=== PATIENT | female | born 1985 | race Two or more races ===

== ENCOUNTER 2024-04-18 13:21 | Emergency (ER) | payer MEDICAID ==
[~2024-04-18] VITALS: Ht 149.9 cm; Wt 70.8 kg
[2024-04-18 13:30] VITALS: BP 156/103; TEMP 98.3
[2024-04-18] MEDS ORDERED: BENZONATATE 100 MG CAPSULE PO ONE (13:55)
[2024-04-18] MEDS: BENZONATATE 100 MG CAPSULE PO PRN (14:04)
[2024-04-18 15:48] LABS: BASOPHILS % (AUTO) 0.4 % (0.0-2.0); EOSINOPHILS # (AUTO) 0.7 K/uL (0.0-0.7); EOSINOPHILS % (AUTO) 5.9 % (0.0-6.0); HEMATOCRIT 34 % (33-45); HEMOGLOBIN 11.2 g/dL (11.5-14.8); LYMPHOCYTES # (AUTO) 2.2 K/uL (0.8-4.8); LYMPHOCYTES % (AUTO) 19.4 % (20.0-44.0); MEAN CORPUSCULAR HEMOGLOBIN 30 PG (26.0-33.0); MEAN CORPUSCULAR HGB CONC 33 g/dl (31.0-36.0); MEAN CORPUSCULAR VOLUME 90 fL (82-100); MONOCYTES # (AUTO) 0.7 K/uL (0.1-1.30); MONOCYTES % (AUTO) 6.6 % (2.0-12.0); NEUTROPHILS # (AUTO) 7.6 K/uL (1.8-8.9); NEUTROPHILS % (AUTO) 67.7 % (43.0-81.0); PLATELET COUNT (AUTO) 234 K/uL (150-450); RED BLOOD CELL COUNT(AUTO) 3.75 MIL/uL (4.0-5.2); RED CELL DISTRIBUTION WIDTH 14.6 % (11.5-15.0); WHITE BLOOD COUNT (AUTO) 11.3 K/uL (4.3-11.0)
[2024-04-18 15:56] LABS: CALCIUM, SERUM 8.5 mg/dL (8.5-10.1); CREATININE 0.8 mg/dL (0.6-1.3); POTASSIUM 2.9 mmol/L (3.5-5.1)
[2024-04-18 16:01] LABS: BILIRUBIN,TOTAL 0.7 mg/dL (0.2-1.0); TOTAL PROTEIN, SERUM 7.4 g/dL (6.4-8.2)
[2024-04-18 16:09] LABS: ALBUMIN 3.4 g/dL (3.4-5.0)
[2024-04-18 17:21] LABS: APPEARANCE,URINE Slightly Cloudy (CLEAR); BILIRUBIN,URINE Negative (NEGATIVE); BLOOD, URINE Small Ery/uL (NEGATIVE); COLOR,URINE LIGHT YELLOW (YELLOW); KETONES,URINE Negative (NEGATIVE); LEUKOCYTE ESTERASE ,URINE Small (NEGATIVE); NITRITE, URINE Positive (NEGATIVE); PH,URINE 5.5 (5.0-8.0); PROTEIN,URINE 100 mg/dl (NEGATIVE); UGLUCOSE Negative (NEGATIVE); UROBILINOGEN,URINE 0.2 EU/dL (0.2)
[2024-04-18] MEDS ORDERED: CEFD300C3 PO (17:30)
[2024-04-18] MEDS ORDERED: ALBU18HF2 INH (17:42)
[2024-04-18 17:51] VITALS: O2SAT 98
[2024-04-18 18:04] LABS: ADD URINE CULTURE YES; BACTERIA,URINE Many /HPF (None Seen); SQUAMOUS EPITHELIAL CELL,UR Moderate /HPF (None Seen); WBC,URINE 21-50 /HPF (0-3)
== END 2024-04-18 17:51 | disposition home or self-care (01) ==
LOC: ER 13:21
DX: N13.2 Hydronephrosis with renal and ureteral calculous obstruction (principal); N39.0 Urinary tract infection, site not specified; R05.9 Cough, unspecified; R07.9 Chest pain, unspecified; R03.0 Elevated blood-pressure reading, without diagnosis of hypertension; R94.31 Abnormal electrocardiogram [ECG] [EKG]
CPT/HCPCS: 36415; 71045-TC; 76770-TC; 80053-TC; 81001; 83690-TC; 85025-TC; 87086-TC

== ENCOUNTER 2024-05-02 08:07 | Emergency (ER) | payer MEDICAID ==
[~2024-05-02] VITALS: Ht 157.5 cm; Wt 73.5 kg
[~2024-05-02 08:07] MED LIST: ALBU18HF2 INH; CEFD300C3 PO
[2024-05-02] MEDS ORDERED: KETOROLAC TROMETHAMINE 15 MG/ML VIAL ONE (08:44)
[2024-05-02] MEDS ORDERED: ONDANSETRON HCL/PF 4 MG/2 ML VIAL ONE (08:44)
[2024-05-02 08:50] LABS: BASOPHILS % (AUTO) 0.2 % (0.0-2.0); EOSINOPHILS # (AUTO) 0.2 K/uL (0.0-0.7); EOSINOPHILS % (AUTO) 2.4 % (0.0-6.0); HEMATOCRIT 35 % (33-45); HEMOGLOBIN 11.5 g/dL (11.5-14.8); LYMPHOCYTES # (AUTO) 1.5 K/uL (0.8-4.8); LYMPHOCYTES % (AUTO) 14.5 % (20.0-44.0); MEAN CORPUSCULAR HEMOGLOBIN 30 PG (26.0-33.0); MEAN CORPUSCULAR HGB CONC 34 g/dl (31.0-36.0); MEAN CORPUSCULAR VOLUME 89 fL (82-100); MONOCYTES # (AUTO) 0.5 K/uL (0.1-1.30); MONOCYTES % (AUTO) 4.8 % (2.0-12.0); NEUTROPHILS # (AUTO) 7.9 K/uL (1.8-8.9); NEUTROPHILS % (AUTO) 78.1 % (43.0-81.0); PLATELET COUNT (AUTO) 305 K/uL (150-450); RED BLOOD CELL COUNT(AUTO) 3.87 MIL/uL (4.0-5.2); RED CELL DISTRIBUTION WIDTH 15.5 % (11.5-15.0); WHITE BLOOD COUNT (AUTO) 10.1 K/uL (4.3-11.0)
[2024-05-02 09:01] LABS: CALCIUM, SERUM 9.2 mg/dL (8.5-10.1); CREATININE 0.8 mg/dL (0.6-1.3); POTASSIUM 3.3 mmol/L (3.5-5.1)
[2024-05-02 09:08] LABS: ALBUMIN 3.3 g/dL (3.4-5.0); BILIRUBIN,DIRECT 0.1 mg/dL (0.0-0.2); BILIRUBIN,TOTAL 0.4 mg/dL (0.2-1.0); TOTAL PROTEIN, SERUM 7.8 g/dL (6.4-8.2)
[2024-05-02] MEDS: IV NS 0.9% 1,000 ML BAG IV ONE (09:10)
[2024-05-02] MEDS: KETOROLAC TROMETHAMINE 15 MG/ML VIAL IV ONE (09:10)
[2024-05-02] MEDS: ONDANSETRON HCL/PF 4 MG/2 ML VIAL IV ONE (09:11)
[2024-05-02 10:14] LABS: APPEARANCE,URINE CLEAR (CLEAR); BILIRUBIN,URINE NEGATIVE (NEGATIVE); BLOOD, URINE 1+ Ery/uL (NEGATIVE); COLOR,URINE YELLOW (YELLOW); KETONES,URINE NEGATIVE (NEGATIVE); LEUKOCYTE ESTERASE ,URINE 1+ (NEGATIVE); NITRITE, URINE POSITIVE (NEGATIVE); PREGNANCY TEST URINE QUAL NEGATIVE (NEGATIVE); PROTEIN,URINE 1+ mg/dl (NEGATIVE); UGLUCOSE 1+ mg/dL (NEGATIVE); UROBILINOGEN,URINE 0.2 EU/dL (0.2)
[2024-05-02 10:27] LABS: SQUAMOUS EPITHELIAL CELL,UR Moderate /HPF (None Seen)
[2024-05-02 10:28] LABS: ADD URINE CULTURE YES; BACTERIA,URINE Moderate /HPF (None Seen)
[2024-05-02 10:31] LABS: WBC,URINE 51-80 /HPF (0-3)
[2024-05-02] MEDS ORDERED: CEFD300C3 PO (10:36)
[2024-05-02] MEDS ORDERED: ONDA4TAB5 PO (10:36)
[2024-05-02] MEDS ORDERED: IBUP-1955 PO (10:36)
[2024-05-02] MEDS ORDERED: TAMS-12 PO (10:36)
[2024-05-02] MEDS ORDERED: HYDR-4303 PO (10:36)
[2024-05-02] MEDS ORDERED: NITR100C6 PO (10:39)
[2024-05-02] MEDS ORDERED: CEFTRIAXONE 1GM BAG (ER ONLY) 50 ML IV ONE (10:43)
[2024-05-02] MEDS: CEFTRIAXONE 1 G in IV D5W 50 ML IV ONE (10:51)
[2024-05-02 11:24] VITALS: BP 130/20; TEMP 98.3; O2SAT 100
== END 2024-05-02 11:57 | disposition home or self-care (01) ==
LOC: ER 08:16
DX: N13.2 Hydronephrosis with renal and ureteral calculous obstruction (principal); R10.32 Left lower quadrant pain; E87.6 Hypokalemia; R11.2 Nausea with vomiting, unspecified; N39.0 Urinary tract infection, site not specified; Z87.440 Personal history of urinary (tract) infections; Z87.442 Personal history of urinary calculi
CPT/HCPCS: 99285; 96365; 76770; 96375; 96361; 85025; 80048; 83690; 80076; 84703; 81001; 36415; J0696 ×2; J2405; J7060; J7030; J1885

== ENCOUNTER 2024-05-17 21:43 | Emergency (ER) | payer MEDICAID ==
[~2024-05-17] VITALS: Ht 160 cm; Wt 61.2 kg
[~2024-05-17 21:43] MED LIST changes: -CEFD300C3 PO; +HYDR-4303 PO; +IBUP-1955 PO; +NITR100C6 PO; +ONDA4TAB5 PO; +TAMS-12 PO
[2024-05-17 23:02] VITALS: TEMP 99
[2024-05-17] MEDS ORDERED: ONDANSETRON HCL/PF 4 MG/2 ML VIAL ONE (23:18)
[2024-05-17] MEDS ORDERED: KETOROLAC TROMETHAMINE INJ 30 MG/ML VIAL ONE (23:26)
[2024-05-17 23:28] LABS: BASOPHILS % (AUTO) 0.1 % (0.0-2.0); EOSINOPHILS # (AUTO) 0.2 K/uL (0.0-0.7); EOSINOPHILS % (AUTO) 0.7 % (0.0-6.0); HEMATOCRIT 35 % (33-45); HEMOGLOBIN 11.9 g/dL (11.5-14.8); LYMPHOCYTES # (AUTO) 1.2 K/uL (0.8-4.8); MEAN CORPUSCULAR HEMOGLOBIN 29 PG (26.0-33.0); MEAN CORPUSCULAR HGB CONC 34 g/dl (31.0-36.0); MEAN CORPUSCULAR VOLUME 88 fL (82-100); MONOCYTES # (AUTO) 1.1 K/uL (0.1-1.30); MONOCYTES % (AUTO) 4.5 % (2.0-12.0); NEUTROPHILS # (AUTO) 21.2 K/uL (1.8-8.9); NEUTROPHILS % (AUTO) 89.7 % (43.0-81.0); PLATELET COUNT (AUTO) 314 K/uL (150-450); RED BLOOD CELL COUNT(AUTO) 4.05 MIL/uL (4.0-5.2); RED CELL DISTRIBUTION WIDTH 15.2 % (11.5-15.0); WHITE BLOOD COUNT (AUTO) 23.7 K/uL (4.3-11.0)
[2024-05-17] MEDS: ONDANSETRON HCL/PF 4 MG/2 ML VIAL IVP ONE (23:35)
[2024-05-17] MEDS: IV NS 0.9% 1,000 ML BAG IV ONE (23:35)
[2024-05-17] MEDS: KETOROLAC TROMETHAMINE 15 MG/ML VIAL IV ONE (23:35)
[2024-05-17 23:42] LABS: INR 0.98 (0.91-1.10); PARTIAL THROMBOPLASTIN TIME 27.9 SEC (24.3-34.3); PROTHROMBIN TIME 10.4 SECS (9.2-11.1)
[2024-05-17 23:43] LABS: CALCIUM, SERUM 8.9 mg/dL (8.5-10.1); POTASSIUM 2.9 mmol/L (3.5-5.1)
[2024-05-17 23:48] LABS: ALBUMIN 3.8 g/dL (3.4-5.0); BILIRUBIN,DIRECT 0.1 mg/dL (0.0-0.2); BILIRUBIN,TOTAL 0.6 mg/dL (0.2-1.0); TOTAL PROTEIN, SERUM 7.9 g/dL (6.4-8.2)
[2024-05-18 00:01] LABS: APPEARANCE,URINE SLIGHTLY CLOUDY (CLEAR); BILIRUBIN,URINE NEGATIVE (NEGATIVE); BLOOD, URINE 1+ Ery/uL (NEGATIVE); COLOR,URINE YELLOW (YELLOW); KETONES,URINE NEGATIVE (NEGATIVE); LEUKOCYTE ESTERASE ,URINE 2+ (NEGATIVE); NITRITE, URINE NEGATIVE (NEGATIVE); PROTEIN,URINE 1+ mg/dl (NEGATIVE); UGLUCOSE NEGATIVE (NEGATIVE); UROBILINOGEN,URINE 0.2 EU/dL (0.2)
[2024-05-18 00:52] LABS: RBC,URINE 0-2 /HPF (0-2); WBC,URINE 21-50 /HPF (0-3)
[2024-05-18 00:53] LABS: ADD URINE CULTURE YES; BACTERIA,URINE Moderate /HPF (None Seen)
[2024-05-18 01:02] VITALS: BP 118/76; O2SAT 99
[2024-05-18] MEDS ORDERED: LEVO750T46 PO (01:18)
[2024-05-18] MEDS ORDERED: LEVOFLOXACIN (250MG) 250 MG TABLET ONE (01:29)
[2024-05-18] MEDS: LEVOFLOXACIN (250MG) 250 MG TABLET PO ONE (01:34)
== END 2024-05-18 01:37 | disposition home or self-care (01) ==
LOC: ER 21:45
DX: N12 Tubulo-interstitial nephritis, not specified as acute or chronic (principal); E87.6 Hypokalemia; Z87.442 Personal history of urinary calculi
CPT/HCPCS: 99285; 74176; 96374; 96361; 96375; 85025; 80048; 83690; 80076; 81001; 36415; 85730; J1885; J2405; J7030

== ENCOUNTER 2024-05-18 17:35 | Inpatient (IN) | payer MEDICAID ==
[~2024-05-18] VITALS: Ht 152.4 cm; Wt 68.9 kg
[~2024-05-18 17:35] MED LIST changes: +LEVO750T46 PO
[2024-05-18] MEDS ORDERED: ONDANSETRON HCL/PF 4 MG/2 ML VIAL ONE (18:35)
[2024-05-18] MEDS ORDERED: MORPHINE SULFATE INJ 4 MG/ML DISP.SYRIN ONE (18:36)
[2024-05-18] MEDS ORDERED: ACETAMINOPHEN ES 500 MG TABLET ONE (18:36)
[2024-05-18 18:39] LABS: BASOPHILS % (AUTO) 0.2 % (0.0-2.0); EOSINOPHILS # (AUTO) 0.1 K/uL (0.0-0.7); EOSINOPHILS % (AUTO) 0.8 % (0.0-6.0); HEMATOCRIT 34 % (33-45); HEMOGLOBIN 11.3 g/dL (11.5-14.8); LYMPHOCYTES # (AUTO) 1.6 K/uL (0.8-4.8); LYMPHOCYTES % (AUTO) 9.4 % (20.0-44.0); MEAN CORPUSCULAR HEMOGLOBIN 30 PG (26.0-33.0); MEAN CORPUSCULAR HGB CONC 33 g/dl (31.0-36.0); MEAN CORPUSCULAR VOLUME 89 fL (82-100); MONOCYTES # (AUTO) 0.7 K/uL (0.1-1.30); NEUTROPHILS # (AUTO) 14.5 K/uL (1.8-8.9); NEUTROPHILS % (AUTO) 85.6 % (43.0-81.0); PLATELET COUNT (AUTO) 303 K/uL (150-450); RED BLOOD CELL COUNT(AUTO) 3.85 MIL/uL (4.0-5.2); RED CELL DISTRIBUTION WIDTH 15.5 % (11.5-15.0)
[2024-05-18 18:50] LABS: CALCIUM, SERUM 9.3 mg/dL (8.5-10.1); CREATININE 0.9 mg/dL (0.6-1.3); POTASSIUM 3.1 mmol/L (3.5-5.1)
[2024-05-18 18:51] LABS: INR 1.05 (0.91-1.10); PARTIAL THROMBOPLASTIN TIME 32.3 SEC (24.3-34.3); PROTHROMBIN TIME 10.8 SECS (9.2-11.1)
[2024-05-18] MEDS: CEFEPIME 1 GM in IV D5W 50 ML IV ONE (18:54)
[2024-05-18] MEDS: MORPHINE SULFATE INJ 2 MG/ML DISP.SYRIN IV ONE (18:55)
[2024-05-18] MEDS: ONDANSETRON HCL/PF 4 MG/2 ML VIAL IVP ONE (18:55)
[2024-05-18] MEDS: ACETAMINOPHEN ES 500 MG TABLET PO ONE (18:55)
[2024-05-18 18:56] LABS: ALBUMIN 3.5 g/dL (3.4-5.0); BILIRUBIN,DIRECT 0.1 mg/dL (0.0-0.2); BILIRUBIN,TOTAL 0.6 mg/dL (0.2-1.0); TOTAL PROTEIN, SERUM 7.8 g/dL (6.4-8.2)
[2024-05-18] MEDS: IV NS 0.9% 1,000 ML BAG IV ONE (18:56)
[2024-05-18 19:05] LABS: LACTIC ACID 0.9 mmol/L (0.4-2.0)
[2024-05-18] MEDS ORDERED: KETOROLAC TROMETHAMINE 15 MG/ML VIAL ONE (19:17)
[2024-05-18] MEDS: KETOROLAC TROMETHAMINE 15 MG/ML VIAL IV ONE (19:22)
[2024-05-18 19:26] LABS: APPEARANCE,URINE Slightly Cloudy (CLEAR); BILIRUBIN,URINE Negative (NEGATIVE); BLOOD, URINE Moderate Ery/uL (NEGATIVE); COLOR,URINE YELLOW (YELLOW); KETONES,URINE Negative (NEGATIVE); LEUKOCYTE ESTERASE ,URINE Small (NEGATIVE); NITRITE, URINE Negative (NEGATIVE); PH,URINE 6.5 (5.0-8.0); PROTEIN,URINE 30 mg/dl (NEGATIVE); UGLUCOSE Negative (NEGATIVE); UROBILINOGEN,URINE 0.2 EU/dL (0.2)
[2024-05-18 19:42] LABS: ADD URINE CULTURE YES; BACTERIA,URINE Few /HPF (None Seen)
[2024-05-18] MEDS ORDERED: MAG HYDROX/AL HYDROX/SIMETH 30 ML UDC PO PRN (20:00)
[2024-05-18] MEDS ORDERED: MORPHINE SULFATE INJ 2 MG/ML DISP.SYRIN IV PRN (20:00)
[2024-05-18] MEDS ORDERED: Z GUARD REMEDY 4 OZ OINT TP PRN (20:00)
[2024-05-18] MEDS ORDERED: MAGNESIUM HYDROXIDE 30 ML UDC PO PRN (20:00)
[2024-05-18] MEDS ORDERED: ONDANSETRON HCL/PF 4 MG/2 ML VIAL IVP PRN (20:00)
[2024-05-18] MEDS ORDERED: ACETAMINOPHEN 325 MG TABLET PO PRN (20:00)
[2024-05-18] MEDS ORDERED: POTASSIUM CHLORIDE 20 MEQ TAB.PRT.SR PO ONE (20:57)
[2024-05-18] MEDS: POTASSIUM CHLORIDE 20 MEQ TAB.PRT.SR PO ONE (21:00)
[2024-05-18 22:18] VITALS: BP 135/79; TEMP 98.4; O2SAT 99
[2024-05-18] MEDS: IV NS 0.9% 1,000 ML IV PRN (23:16)
[2024-05-19] MEDS ORDERED: CEFEPIME 1 GM VIAL ONE ×2 (01:12→05:39)
[2024-05-19] MEDS: CEFEPIME 2 GM in IV D5W 100 ML IV SCH (06:11)
[2024-05-19 06:30] LABS: BASOPHILS % (AUTO) 0.3 % (0.0-2.0); EOSINOPHILS # (AUTO) 0.4 K/uL (0.0-0.7); EOSINOPHILS % (AUTO) 3.4 % (0.0-6.0); HEMATOCRIT 31 % (33-45); HEMOGLOBIN 10.2 g/dL (11.5-14.8); LYMPHOCYTES # (AUTO) 1.4 K/uL (0.8-4.8); LYMPHOCYTES % (AUTO) 12.4 % (20.0-44.0); MEAN CORPUSCULAR HEMOGLOBIN 29 PG (26.0-33.0); MEAN CORPUSCULAR HGB CONC 33 g/dl (31.0-36.0); MEAN CORPUSCULAR VOLUME 89 fL (82-100); MONOCYTES # (AUTO) 0.6 K/uL (0.1-1.30); MONOCYTES % (AUTO) 5.3 % (2.0-12.0); NEUTROPHILS # (AUTO) 8.8 K/uL (1.8-8.9); NEUTROPHILS % (AUTO) 78.6 % (43.0-81.0); PLATELET COUNT (AUTO) 265 K/uL (150-450); RED BLOOD CELL COUNT(AUTO) 3.51 MIL/uL (4.0-5.2); RED CELL DISTRIBUTION WIDTH 15.5 % (11.5-15.0); WHITE BLOOD COUNT (AUTO) 11.2 K/uL (4.3-11.0)
[2024-05-19 07:37] LABS: CALCIUM, SERUM 8.6 mg/dL (8.5-10.1); CREATININE 0.8 mg/dL (0.6-1.3); MAGNESIUM 1.6 mg/dL (1.8-2.4); PHOSPHORUS 3.3 mg/dL (2.5-4.9); POTASSIUM 3.1 mmol/L (3.5-5.1)
[2024-05-19 08:00] VITALS: BP 153/89; TEMP 98.2
[2024-05-19] MEDS: PANTOPRAZOLE 40 MG TABLET.DR PO SCH (08:18)
[2024-05-19] MEDS: MAGNESIUM OXIDE 400 MG TABLET PO ONE (09:29)
[2024-05-19] MEDS: POTASSIUM CHLORIDE 20 MEQ TAB.PRT.SR PO SCH (09:30)
[2024-05-19 16:00] VITALS: BP 152/79; TEMP 98.4; O2SAT 98
[2024-05-19 20:00] VITALS: BP 154/87; TEMP 98.4; O2SAT 100
[2024-05-20 07:00] VITALS: BP_SYST 126; BP_SYST 156; BP_DIAS 75; BP_DIAS 94; TEMP 98.2; TEMP 99; O2SAT 98
[2024-05-20 10:36] LABS: BASOPHILS % (AUTO) 0.3 % (0.0-2.0); EOSINOPHILS # (AUTO) 0.4 K/uL (0.0-0.7); EOSINOPHILS % (AUTO) 5.3 % (0.0-6.0); HEMATOCRIT 33 % (33-45); LYMPHOCYTES # (AUTO) 1.7 K/uL (0.8-4.8); LYMPHOCYTES % (AUTO) 22.2 % (20.0-44.0); MEAN CORPUSCULAR HEMOGLOBIN 29 PG (26.0-33.0); MEAN CORPUSCULAR HGB CONC 33 g/dl (31.0-36.0); MEAN CORPUSCULAR VOLUME 88 fL (82-100); MONOCYTES # (AUTO) 0.4 K/uL (0.1-1.30); MONOCYTES % (AUTO) 5.4 % (2.0-12.0); NEUTROPHILS % (AUTO) 66.8 % (43.0-81.0); PLATELET COUNT (AUTO) 316 K/uL (150-450); RED BLOOD CELL COUNT(AUTO) 3.75 MIL/uL (4.0-5.2); RED CELL DISTRIBUTION WIDTH 15.5 % (11.5-15.0); WHITE BLOOD COUNT (AUTO) 7.5 K/uL (4.3-11.0)
[2024-05-20 10:54] LABS: CALCIUM, SERUM 8.6 mg/dL (8.5-10.1); CREATININE 0.8 mg/dL (0.6-1.3); POTASSIUM 3.3 mmol/L (3.5-5.1)
[2024-05-20] MEDS ORDERED: MAGNESIUM OXIDE 400 MG TABLET PO SCH (13:00)
[2024-05-20] MEDS: POTASSIUM CHLORIDE 20 MEQ TAB.PRT.SR PO ONE (13:30)
[2024-05-20 16:00] VITALS: BP 157/91; TEMP 98.2; O2SAT 98
[2024-05-20 20:23] VITALS: BP 146/97; TEMP 98.1; O2SAT 100
[2024-05-20 20:44] VITALS: BP 140/80
[2024-05-21] MEDS: MAGNESIUM OXIDE 400 MG TABLET PO ONE (06:35)
[2024-05-21 06:48] LABS: BASOPHILS % (AUTO) 0.4 % (0.0-2.0); EOSINOPHILS # (AUTO) 0.5 K/uL (0.0-0.7); EOSINOPHILS % (AUTO) 7.5 % (0.0-6.0); HEMATOCRIT 33 % (33-45); HEMOGLOBIN 11.1 g/dL (11.5-14.8); LYMPHOCYTES # (AUTO) 2.2 K/uL (0.8-4.8); LYMPHOCYTES % (AUTO) 31.4 % (20.0-44.0); MEAN CORPUSCULAR HEMOGLOBIN 30 PG (26.0-33.0); MEAN CORPUSCULAR HGB CONC 34 g/dl (31.0-36.0); MEAN CORPUSCULAR VOLUME 88 fL (82-100); MONOCYTES # (AUTO) 0.5 K/uL (0.1-1.30); MONOCYTES % (AUTO) 6.8 % (2.0-12.0); NEUTROPHILS # (AUTO) 3.8 K/uL (1.8-8.9); NEUTROPHILS % (AUTO) 53.9 % (43.0-81.0); PLATELET COUNT (AUTO) 316 K/uL (150-450); RED BLOOD CELL COUNT(AUTO) 3.74 MIL/uL (4.0-5.2); RED CELL DISTRIBUTION WIDTH 14.9 % (11.5-15.0)
[2024-05-21 07:07] LABS: CALCIUM, SERUM 8.7 mg/dL (8.5-10.1); CREATININE 0.8 mg/dL (0.6-1.3); POTASSIUM 3.7 mmol/L (3.5-5.1)
[2024-05-21 07:30] VITALS: BP 163/95; TEMP 97.9; O2SAT 100
[2024-05-21] MEDS: Magnesium 1GM/D5W 100ML PREMIX PIGGYBACK IV ONE (09:15)
[2024-05-21] MEDS ORDERED: CEFP200T14 PO (10:23)
== END 2024-05-21 13:00 | disposition home or self-care (01) | DRG 463 ==
LOC: ER 17:44 → MED 21:32
PROVIDERS: ADMIT Surgery Vascular Surgery
DX: N13.6 Pyonephrosis (principal); B96.20 Unspecified Escherichia coli [E. coli] as the cause of diseases classified elsewhere; D64.9 Anemia, unspecified; E83.42 Hypomagnesemia; E87.6 Hypokalemia; E66.9 Obesity, unspecified; Z87.442 Personal history of urinary calculi; Z91.199 Patient's noncompliance with other medical treatment and regimen due to unspecified reason; Z68.29 Body mass index [BMI] 29.0-29.9, adult; D72.829 Elevated white blood cell count, unspecified; N10 Acute pyelonephritis
CPT/HCPCS: 36415; 80048-TC; 80076-TC; 81001; 83605-TC; 83735-TC; 84100-TC; 84702-TC; 85025-TC; 85730-TC; 87040-TC; 87086-TC; A4223; G0378; J0692; J1885; J2270; J2405; J3475; J7030; J7060